=== PATIENT | male | born 1985 | race African-American/Black ===

== ENCOUNTER 2018-04-06 15:45 | Emergency (ER) | payer BC ==
[~2018-04-06 15:45] MED LIST: ANAPROX DS550 MG PO; ANUSOL-HC25 MG RC; BACTRIM DS 8001 TA1 PO; FLAGYL500 MG PO; NAPROSYN500 MG PO; NORCO 325 MG-51 TAB PO; Orphenadrine C100 MG PO; PARAFON FORTE500 MG PO; PROCTOFOAM 1%10 G1 R; TUCKS50% TP; VIBRA-TAB100 MG PO; VICODIN 5/500 505 MG PO; VICODIN ES 7501 TAB PO; Zofran4 MG PO
[2018-04-06 16:04] LABS: BASO % 0.4 % (0.0-1.0); EOS # 0.1 10*3/uL (0.0-0.4); EOS % 1.5 % (1.0-4.0); HEMATOCRIT 43.6 % (42.0-52.0); HEMOGLOBIN 15.3 g/dl (14.0-18.0); LYMPH # 1.8 10*3/uL (1.3-4.4); LYMPH % 21.4 % (27.0-41.0); MEAN CELL VOLUME 91.2 fl (80.0-94.0); MEAN CORPUSCULAR HGB CONC 35.1 g/dl (33.0-37.0); MEAN PLATELET VOLUME 9.7 fl (9.6-12.3); MONO # 0.7 10*3/uL (0.1-1.0); MONO % 7.8 % (3.0-9.0); NEUT # 5.9 10*3/uL (2.3-7.9); NEUT % 68.7 % (47.0-73.0); PLATELET COUNT AUTOMATED 208 10*3/uL (130-400); RED BLOOD COUNT 4.78 10*6/uL (4.50-5.90); RED CELL DISTRI WIDTH 11.9 % (0-14.5); WHITE BLOOD COUNT 8.6 10*3/uL (4.8-10.8)
[2018-04-06 16:14] LABS: ACT PARTIAL THROMBO TIME 21.5 SECONDS (20.8-31.5)
[2018-04-06 16:19] LABS: BUN 14 mg/dl (7-24); CHLORIDE 109 mmol/L (98-107); CREATININE 1.29 mg/dL (0.70-1.30); SODIUM 144 mmol/L (136-145)
[2018-04-06] MEDS ORDERED: VIBRAMYCIN100 MG PO (17:27)
[2018-04-09 08:13] LABS: GONOCOCCUS BY NAA Negative (Negative)
== END 2018-04-06 17:02 | disposition home or self-care (01) ==
LOC: ED 15:45
PROVIDERS: Emergency Medicine
DX: N45.1 Epididymitis (principal)

== ENCOUNTER 2018-04-08 03:53 | Emergency (ER) | payer BC ==
[~2018-04-08] VITALS: Ht 170.1 cm; Wt 77.1 kg
[~2018-04-08 03:53] MED LIST changes: +VIBRAMYCIN100 MG PO
== END 2018-04-08 05:20 | disposition left against medical advice (07) ==
LOC: ED 03:53
DX: N50.812 Left testicular pain (principal); N45.1 Epididymitis

== ENCOUNTER 2018-08-27 21:10 | Emergency (ER) | payer BC ==
[~2018-08-27] VITALS: Wt 81.6 kg
--- NOTE | ~2018-08-27 | EKG ---
[place], [place] ELECTROCARDIOGRAM REPORT NAME: ELAINA GAINES UNIT #: [id number] ROOM: DOCTOR: EPIPHANY DRAFT REPORT BIRTHDATE: [birth year] [facility] Test Date: 2018-08-27 Test Time: 21:20:56 Pat Name: ELAINA GAINES Department: ER Room: 16 Gender: M Department Clerk: Sabas Garza : 1985 Requested By: CRISTOPHER VILLEGAS Order Number: [id number] Reading MD: Scooby Castillo MD Measurements Intervals [place] Rate: 115 P: 56 OR: 119 QRS: 59 QRSD: 81 T: 7 QT: 310 QTc: 429 Interpretive Statements Sinus tachycardia Probable left atrial enlargement Electronically Signed On 08-30-2018 7:00:36 PDT by Scooby Castillo MD CM:EKGRPT:ELECTROCARDIOGRAM REPORT 19 07 CRISTOPHER VILLEGAS MD EPIPHANY DRAFT REPORT CRISTOPHER VILLEGAS MD
--- NOTE | ~2018-08-27 | EKG ---
[place], [place] ELECTROCARDIOGRAM REPORT NAME: ELAINA GAINES UNIT #: [id number] ROOM: DOCTOR: EPIPHANY DRAFT REPORT BIRTHDATE: [birth year] [facility] Test Date: 2018-08-28 Test Time: 00:18:01 Pat Name: ELAINA GAINES Department: Room: Gender: [employer]: Jeannette Chao : 1985 Requested By: CRISTOPHER VILLEGAS Order Number: [id number] Reading MD: Scooby Castillo MD Measurements Intervals [place] Rate: 106 P: 69 SD: 115 QRS: 65 QRSD: 81 T: -4 QT: 306 QTc: 407 Interpretive Statements Sinus tachycardia Borderline T wave abnormalities Electronically Signed On 08-30-2018 7:00:53 PDT by Scooby Castillo MD CM:EKGRPT:ELECTROCARDIOGRAM REPORT 0018 [id number] CRISTOPHER VILLEGAS MD EPIPHANY DRAFT REPORT CRISTOPHER VILLEGAS MD
[2018-08-27 21:50] LABS: BASO % 0.4 % (0.0-1.0); EOS # 0.1 10*3/uL (0.0-0.4); EOS % 0.9 % (1.0-4.0); HEMATOCRIT 46.7 % (42.0-52.0); LYMPH % 10.4 % (27.0-41.0); MEAN CELL VOLUME 93.4 fl (80.0-94.0); MEAN CORPUSCULAR HGB CONC 34.3 g/dl (33.0-37.0); MEAN PLATELET VOLUME 8.6 fl (9.6-12.3); MONO # 0.8 10*3/uL (0.1-1.0); MONO % 8.9 % (3.0-9.0); NEUT # 7.4 10*3/uL (2.3-7.9); NEUT % 78.9 % (47.0-73.0); PLATELET COUNT AUTOMATED 201 10*3/uL (130-400); RED CELL DISTRI WIDTH 11.9 % (0-14.5); WHITE BLOOD COUNT 9.4 10*3/uL (4.8-10.8)
[2018-08-27 22:04] LABS: ACT PARTIAL THROMBO TIME 21.3 SECONDS (20.8-31.5); INTERNATIONAL NORM RATIO 0.9 (2.0-3.5)
[2018-08-27 22:09] LABS: ALBUMIN 3.8 gm/dl (3.1-4.5); ALKALINE PHOSPHATASE 81 U/L (45-117); BUN 13 mg/dl (7-24); CHLORIDE 100 mmol/L (98-107); CREATININE 1.31 mg/dL (0.70-1.30); POTASSIUM 3.9 mmol/L (3.5-5.1); SGOT/AST 14 IU/L (3-35); SGPT/ALT 23 U/L (12-78); SODIUM 137 mmol/L (136-145); TOTAL PROTEIN 7.2 gm/dL (6.4-8.2)
[2018-08-27 22:11] LABS: TROPONIN I < 0.015 ng/ml (<0.045)
== END 2018-08-28 01:00 | disposition home or self-care (01) ==
LOC: ED 21:10
PROVIDERS: Emergency Medicine Emergency Medical Services
DX: B34.9 Viral infection, unspecified (principal); R42 Dizziness and giddiness; Z79.2 Long term (current) use of antibiotics

== ENCOUNTER 2018-12-31 02:14 | Emergency (ER) | payer BC ==
[~2018-12-31] VITALS: Ht 170.1 cm; Wt 81.6 kg
[2018-12-31] MEDS ORDERED: GOOD NEIGHBOR150 MG PO (02:19)
[2018-12-31] MEDS ORDERED: LISINOPRIL5 MG PO (02:20)
[2018-12-31 03:25] LABS: BILIRUBIN NEGATIVE (NEGATIVE); BLOOD NEGATIVE (NEGATIVE); CLARITY CLEAR (CLEAR); COLOR YELLOW (YELLOW); GLUCOSE NEGATIVE (NEGATIVE); KETONE NEGATIVE (NEGATIVE); LEUKO ESTERASE NEGATIVE (NEGATIVE); NITRITE NEGATIVE (NEGATIVE); SPECIFIC GRAVITY >= 1.030 (1.005-1.030); UROBILINOGEN 0.2 E.U./dl (0.2-1.0)
[2019-01-02 10:06] LABS: GONOCOCCUS BY NAA Negative (Negative)
== END 2018-12-31 04:44 | disposition home or self-care (01) ==
LOC: ED 02:14
PROVIDERS: Student in an Organized Health Care Education/Training Program
DX: I86.1 Scrotal varices (principal); R42 Dizziness and giddiness; R11.0 Nausea; R06.02 Shortness of breath; R53.83 Other fatigue; R14.0 Abdominal distension (gaseous); Z79.2 Long term (current) use of antibiotics; Z79.899 Other long term (current) drug therapy

== ENCOUNTER 2021-01-13 18:13 | Emergency (ER) | payer MEDICAID ==
[~2021-01-13] VITALS: Ht 170.1 cm; Wt 72.6 kg
[~2021-01-13 18:13] MED LIST changes: +GOOD NEIGHBOR150 MG PO; +LISINOPRIL5 MG PO
[2021-01-13 19:51] LABS: BASO % 0.2 % (0.0-1.0); EOS # 0.1 10*3/uL (0.0-0.4); EOS % 0.9 % (1.0-4.0); HEMATOCRIT 39.9 % (42.0-52.0); LYMPH # 1.6 10*3/uL (1.3-4.4); MEAN CELL VOLUME 85.8 fl (80.0-94.0); MEAN CORPUSCULAR HGB 28.2 pg (27.0-31.0); MEAN CORPUSCULAR HGB CONC 32.8 g/dl (33.0-37.0); MEAN PLATELET VOLUME 8.4 fl (9.6-12.3); MONO # 0.8 10*3/uL (0.1-1.0); MONO % 13.2 % (3.0-9.0); NEUT # 3.3 10*3/uL (2.3-7.9); NEUT % 57.5 % (47.0-73.0); PLATELET COUNT AUTOMATED 251 10*3/uL (130-400); RED BLOOD COUNT 4.65 10*6/uL (4.50-5.90); RED CELL DISTRI WIDTH 12.4 % (0-14.5); WHITE BLOOD COUNT 5.7 10*3/uL (4.8-10.8)
[2021-01-13 20:11] LABS: ALBUMIN 3.3 gm/dl (3.1-4.5); ALKALINE PHOSPHATASE 103 U/L (45-117); BUN 13 mg/dl (7-24); CHLORIDE 110 mmol/L (98-107); CREATININE 0.94 mg/dL (0.70-1.30); POTASSIUM 4.5 mmol/L (3.5-5.1); SGOT/AST 14 IU/L (3-35); SGPT/ALT 28 U/L (12-78); SODIUM 144 mmol/L (136-145); TOTAL PROTEIN 6.5 gm/dL (6.4-8.2)
[2021-01-13 20:17] LABS: THYROID STIM HORMONE (HS) < 0.005 uIU/ml (0.358-4.75); TROPONIN I < 0.015 ng/ml (<0.045)
[2021-01-13 20:41] LABS: BILIRUBIN Negative (Negative); BLOOD Negative (Negative); CLARITY Cloudy (Clear); COLOR Yellow (Yellow); GLUCOSE Negative (Negative); KETONE Negative (Negative); LEUKO ESTERASE Negative (Negative); NITRITE Negative (Negative); PH 6.5 (4.5-8.0); SPECIFIC GRAVITY 1.025 (1.001-1.030)
[2021-01-13 21:00] LABS: RBC 0-2 rbc/hpf (0-2)
[2021-01-13 21:01] LABS: BACTERIA TRACE; EPITHELIAL CELLS 0-2
== END 2021-01-13 21:58 | disposition home or self-care (01) ==
LOC: ED 18:13
PROVIDERS: Emergency Medicine
DX: E07.9 Disorder of thyroid, unspecified (principal); Z20.822 Contact with and (suspected) exposure to COVID-19; F17.210 Nicotine dependence, cigarettes, uncomplicated; Z79.2 Long term (current) use of antibiotics; Z79.899 Other long term (current) drug therapy

== ENCOUNTER → 2021-01-31 | Outpatient (CLI) | payer MEDICAID | END | disposition home or self-care (01) | LOC: RESCLI 01-27 02:42 | PROVIDERS: ATTEND Internal Medicine | DX: E07.89 Other specified disorders of thyroid (principal); I10 Essential (primary) hypertension; K21.9 Gastro-esophageal reflux disease without esophagitis; E05.90 Thyrotoxicosis, unspecified without thyrotoxic crisis or storm; F17.210 Nicotine dependence, cigarettes, uncomplicated; Z88.8 Allergy status to other drugs, medicaments and biological substances ==

== ENCOUNTER → 2021-02-15 | Outpatient (CLI) | payer MEDICAID | END | disposition home or self-care (01) | LOC: NM 07:00 | PROVIDERS: ATTEND Student in an Organized Health Care Education/Training Program | DX: E05.90 Thyrotoxicosis, unspecified without thyrotoxic crisis or storm (principal) ==

== ENCOUNTER → 2021-02-24 | Outpatient (CLI) | payer MEDICAID ==
[2021-02-24 15:12] LABS: INTERNATIONAL NORM RATIO 0.9 (2.0-3.5)
== END | disposition home or self-care (01) ==
LOC: RESCLI 13:08
PROVIDERS: Student in an Organized Health Care Education/Training Program; ATTEND Internal Medicine
DX: I10 Essential (primary) hypertension (principal); E05.90 Thyrotoxicosis, unspecified without thyrotoxic crisis or storm; K21.9 Gastro-esophageal reflux disease without esophagitis; Z79.899 Other long term (current) drug therapy

== ENCOUNTER 2021-03-10 17:58 | Emergency (ER) | payer OTHER | END 2021-03-10 18:17 | disposition left against medical advice (07) | LOC: ED 17:58 | DX: T50.901A Poisoning by unspecified drugs, medicaments and biological substances, accidental (unintentional), initial encounter (principal); Z53.21 Procedure and treatment not carried out due to patient leaving prior to being seen by health care provider; Y92.89 Other specified places as the place of occurrence of the external cause ==